=== PATIENT | male | born 1955 | race Caucasian/White ===

== ENCOUNTER 2017-02-27 18:49 | Emergency (ER) | payer BC ==
[~2017-02-27] VITALS: Ht 175.3 cm; Wt 84.1 kg
[~2017-02-27 18:49] MED LIST: CLINDAMYCIN HC300 MG PO; DEPO-TESTOS100 MG/ML IM; FLUTICASONE PRO16 GM; HYDROCODON-ACE1 EAC8 PO; LEVO-T75 MCG PO; LEVOTHYROXINE50 MCG PO; MOTRIN800 MG PO; NEBULIZER1 EAC1 MC; PANTOPRAZOLE SO40 MG; PROTONIX40 MG PO; TESSALON PERLE100 MG PO; ULTRAM50 MG PO; ZITHROMAX250 MG PO; [UNRECOGNIZED DRUG - REMARK]
[2017-02-27 21:36] LABS: ADD MIUA? YES; BILIRUBIN NEGATIVE; BLOOD NEGATIVE; COLOR YELLOW ((YELLOW)); GLUCOSE (STRIP) NEGATIVE; KETONES NEGATIVE; LEUKOCYTES LARGE; NITRITE POSITIVE; PROTEIN (STRIP) NEGATIVE; SPECIFIC GRAVITY 1.014 (1.000-1.030); UROBILINOGEN 0.2 MG/DL (0.2-1.0)
[2017-02-27 22:00] LABS: RED BLOOD CELLS RARE /HPF (0-5)
[2017-02-27 22:01] LABS: BACTERIA 1+ /HPF; CASTS NONE SEEN /LPF; CRYSTALS NONE SEEN; EPITHELIAL CELLS RARE /HPF; MUCUS NONE SEEN /LPF; UCUL ADDED? YES; WHITE BLOOD CELLS TNTC /HPF (0-5)
[2017-02-27 22:07] LABS: HEMATOCRIT 48.4 % (38.0-50.0); MCH 29.2 PG (29.0-34.0); MCHC 32.9 G/DL (30.0-36.0); MCV 88.8 FL (86-99); MEAN PLAT.VOLUME 10.4 uM^3 (9.0-12.4); PLATELET COUNT 206 K/uL (156-360); RBC DIS.WIDTH-CV 14.8 % (11.8-14.6); RBC DIS.WIDTH-SD 48.1 % (39-53); RED BLOOD COUNT 5.45 M/uL (4.00-5.50); WHITE BLOOD COUNT 10.1 K/uL (4.1-10.2)
[2017-02-27 22:18] LABS: CHLORIDE 107 mEq/L (99-109); POTASSIUM 4.3 mEq/L (3.7-5.4); SODIUM 142 mEq/L (136-147)
[2017-02-27 22:20] LABS: GLUCOSE 66 mg/dL (70-99)
[2017-02-27 22:21] LABS: ANION GAP 8 MEQ/L (2-14)
[2017-02-27 22:22] LABS: TOTAL BILIRUBIN 0.8 mg/dL (0.0-1.0)
[2017-02-27 22:23] LABS: ALKALINE PHOSPHATASE 75 IU/L (3-129)
[2017-02-27 22:24] LABS: GFR ESTIMATE (CALCULATED) > 59 mL/min/
[2017-02-27 22:25] LABS: UREA NITROGEN (BUN) 12 mg/dL (9-23)
[2017-02-27] MEDS ORDERED: PYRIDIUM100 MG PO (22:29)
[2017-02-27] MEDS ORDERED: KEFLEX500 MG PO (22:29)
[2017-02-27 22:41] VITALS: BP 104/65
== END 2017-02-27 22:42 | disposition home or self-care (01) ==
LOC: RME 18:49 → EME 18:49 → RME 22:42
PROVIDERS: Nurse Practitioner Family
DX: N39.0 Urinary tract infection, site not specified (principal); K21.9 Gastro-esophageal reflux disease without esophagitis; Z87.442 Personal history of urinary calculi; Z87.891 Personal history of nicotine dependence
CPT/HCPCS: 80053; 81003; 85027; 87086; 99281; 99283

== ENCOUNTER 2017-03-02 17:50 | Emergency (ER) | payer BC ==
[~2017-03-02] VITALS: Ht 175.3 cm; Wt 84.5 kg
[~2017-03-02 17:50] MED LIST changes: +KEFLEX500 MG PO; +PYRIDIUM100 MG PO
[2017-03-02 19:14] LABS: HEMATOCRIT 50.4 % (38.0-50.0); MCH 29.1 PG (29.0-34.0); MCHC 33.5 G/DL (30.0-36.0); MCV 86.9 FL (86-99); MEAN PLAT.VOLUME 10.4 uM^3 (9.0-12.4); PLATELET COUNT 251 K/uL (156-360); RBC DIS.WIDTH-CV 14.7 % (11.8-14.6); RBC DIS.WIDTH-SD 46.8 % (39-53); WHITE BLOOD COUNT 16.2 K/uL (4.1-10.2)
[2017-03-02 19:29] LABS: ADD MIUA? YES; BILIRUBIN NEGATIVE; BLOOD LARGE; CHLORIDE 102 mEq/L (99-109); GLUCOSE (STRIP) NEGATIVE; KETONES NEGATIVE; LEUKOCYTES LARGE; NITRITE NEGATIVE; POTASSIUM 4.2 mEq/L (3.7-5.4); PROTEIN (STRIP) 100; SODIUM 138 mEq/L (136-147); SPECIFIC GRAVITY 1.014 (1.000-1.030); UROBILINOGEN 0.2 MG/DL (0.2-1.0)
[2017-03-02 19:31] LABS: GLUCOSE 74 mg/dL (70-99)
[2017-03-02 19:32] LABS: ANION GAP 10 MEQ/L (2-14)
[2017-03-02 19:35] LABS: COLOR BLOODY ((YELLOW)); GFR ESTIMATE (CALCULATED) > 59 mL/min/
[2017-03-02 19:36] LABS: UREA NITROGEN (BUN) 15 mg/dL (9-23)
[2017-03-02 19:57] LABS: BACTERIA 1+ /HPF; EPITHELIAL CELLS NONE SEEN /HPF; MUCUS NONE SEEN /LPF; RED BLOOD CELLS TNTC /HPF (0-5); UCUL ADDED? NO
[2017-03-02] MEDS ORDERED: BACTRIM,SEPT1 TABLET PO (21:16)
[2017-03-02 21:46] VITALS: BP 105/64
== END 2017-03-02 21:48 | disposition home or self-care (01) ==
LOC: EME 17:50 → EXP 17:50
PROVIDERS: Physician Assistant
DX: N49.0 Inflammatory disorders of seminal vesicle (principal); N41.0 Acute prostatitis; Z85.819 Personal history of malignant neoplasm of unspecified site of lip, oral cavity, and pharynx; Z87.442 Personal history of urinary calculi; K21.9 Gastro-esophageal reflux disease without esophagitis
CPT/HCPCS: 74176; 76870; 80048; 81003; 85027; 99281; 99283; J1885

== ENCOUNTER 2017-06-08 09:48 | Emergency (ER) | payer BC ==
[~2017-06-08] VITALS: Ht 175.3 cm; Wt 80.4 kg
[~2017-06-08 09:48] MED LIST changes: +BACTRIM,SEPT1 TABLET PO
[2017-06-08 10:50] VITALS: BP 122/82
[2017-06-08 11:05] LABS: ADD MIUA? YES; BILIRUBIN NEGATIVE; BLOOD MODERATE; COLOR YELLOW ((YELLOW)); GLUCOSE (STRIP) NEGATIVE; KETONES NEGATIVE; LEUKOCYTES NEGATIVE; NITRITE NEGATIVE; PROTEIN (STRIP) NEGATIVE; SPECIFIC GRAVITY 1.009 (1.000-1.030); UROBILINOGEN 0.2 MG/DL (0.2-1.0)
[2017-06-08 11:09] LABS: BACTERIA NONE SEEN /HPF; EPITHELIAL CELLS NONE SEEN /HPF; MUCUS NONE SEEN /LPF; UCUL ADDED? NO; WHITE BLOOD CELLS 0-5 /HPF (0-5)
== END 2017-06-08 10:52 | disposition home or self-care (01) ==
LOC: EME 09:48
PROVIDERS: Emergency Medicine
DX: R36.1 Hematospermia (principal); K21.9 Gastro-esophageal reflux disease without esophagitis; F41.9 Anxiety disorder, unspecified; Z87.891 Personal history of nicotine dependence; Z87.442 Personal history of urinary calculi; Z85.818 Personal history of malignant neoplasm of other sites of lip, oral cavity, and pharynx; Z86.2 Personal history of diseases of the blood and blood-forming organs and certain disorders involving the immune mechanism; Z98.890 Other specified postprocedural states
CPT/HCPCS: 81003; 87086; 99281; 99284

== ENCOUNTER 2018-03-11 15:57 | Emergency (ER) | payer BC ==
[~2018-03-11] VITALS: Ht 175.3 cm; Wt 84.7 kg
[2018-03-11] MEDS ORDERED: OLOPATADINE HC2.5 ML BOTH EYES (16:29)
[2018-03-11 16:52] VITALS: BP 105/78
== END 2018-03-11 16:53 | disposition home or self-care (01) ==
LOC: EME 15:57
DX: H10.13 Acute atopic conjunctivitis, bilateral (principal); Z85.819 Personal history of malignant neoplasm of unspecified site of lip, oral cavity, and pharynx

== ENCOUNTER 2018-03-19 21:26 | Emergency (ER) | payer BC ==
[~2018-03-19] VITALS: Ht 175.3 cm; Wt 87.1 kg
[~2018-03-19 21:26] MED LIST changes: +OLOPATADINE HC2.5 ML BOTH EYES
[2018-03-20 00:05] LABS: APPEARANCE CLEAR ((CLEAR)); BILIRUBIN NEGATIVE; BLOOD NEGATIVE; COLOR YELLOW ((YELLOW)); GLUCOSE (STRIP) NEGATIVE; KETONES NEGATIVE; LEUKOCYTES NEGATIVE; NITRITE NEGATIVE; PROTEIN (STRIP) NEGATIVE; SPECIFIC GRAVITY 1.015 (1.000-1.030); UCUL ADDED? NO; UROBILINOGEN 0.2 MG/DL (0.2-1.0)
[2018-03-20 00:55] VITALS: BP 111/69
== END 2018-03-20 00:55 | disposition home or self-care (01) ==
LOC: EXP 21:26 → EME 21:26 → EXP 03-20 00:55
PROVIDERS: Physician Assistant
PROC: 0T9B70Z Drainage of Bladder with Drainage Device, Via Natural or Artificial Opening (ICD-10-PCS; principal; 2018-03-19)
DX: R33.9 Retention of urine, unspecified (principal); R30.0 Dysuria; Z98.890 Other specified postprocedural states; Z87.442 Personal history of urinary calculi; Z85.818 Personal history of malignant neoplasm of other sites of lip, oral cavity, and pharynx
CPT/HCPCS: 81003; 99281; 99284

== ENCOUNTER 2018-04-23 19:14 | Emergency (ER) | payer BC ==
[~2018-04-23] VITALS: Ht 177.8 cm; Wt 85.1 kg
[2018-04-23 21:54] LABS: SOURCE URINE
[2018-04-23 21:59] LABS: APPEARANCE SL.HAZY ((CLEAR)); BILIRUBIN NEGATIVE; BLOOD SMALL; COLOR YELLOW ((YELLOW)); GLUCOSE (STRIP) NEGATIVE; KETONES NEGATIVE; LEUKOCYTES SMALL; NITRITE NEGATIVE; PROTEIN (STRIP) NEGATIVE; SPECIFIC GRAVITY 1.012 (1.000-1.030); UROBILINOGEN 0.2 MG/DL (0.2-1.0)
[2018-04-23] MEDS ORDERED: LEVAQUIN500 MG PO (22:07)
[2018-04-23 22:28] LABS: BACTERIA NONE SEEN /HPF; EPITHELIAL CELLS NONE SEEN /HPF; MUCUS TRACE /LPF; UCUL ADDED? YES
[2018-04-23 23:00] VITALS: BP 120/83
[2018-04-24 13:17] LABS: CHLAMYDIA TRACHOMATIS NEGATIVE; NEISSERIA GONORRHOEAE NEGATIVE
== END 2018-04-23 23:00 | disposition home or self-care (01) ==
LOC: EME 19:14
PROVIDERS: Physician Assistant Medical
DX: N45.1 Epididymitis (principal); N43.3 Hydrocele, unspecified; J30.9 Allergic rhinitis, unspecified; F41.9 Anxiety disorder, unspecified; K21.9 Gastro-esophageal reflux disease without esophagitis; Z87.442 Personal history of urinary calculi; Z85.89 Personal history of malignant neoplasm of other organs and systems
CPT/HCPCS: 76870; 81003; 87086; 87491; 87591; 99281; 99284; J0696